=== PATIENT | female | born 1940 | race Caucasian/White ===

== ENCOUNTER 2021-01-19 12:30 | Inpatient (IN) | payer MEDICARE ==
[~2021-01-19] VITALS: Ht 162.6 cm; Wt 57.6 kg
--- NOTE | 2021-01-19 13:00 | NUR ---
CLEANERS NOTE- PT BROUGHT IN BY AMBULANCE FOR ADMISSION 5150 [address] AFTER SHE WAS FOUND SITTING IN A WCR, CONFUSED LOST AND UNABLE TO CARE FOR SELF. ON FACE TO FACE ASSESSMENT, PT FOUND TO BE ALERT ORIENTED TO PERSON ONLY. STATES 'KUNAL HORAN IS PRESIDENT' 'I OWN A BUNCH OF HOUSES [place]. THIS IS A MISTAKE' PT IS CALM FOR THE MOST PART AND DIRECTABLE. USES FWW TO AMBULATE. SKIN INTACT, PT ALLERGIES LISINPRIL. PMHX- BRONCHITIS, HTN, CVA, PNA, COPD, HEART DISEASE, AORTIC STENOSIS. VS- BP- 154/91, HR- 93, RR- 20, T- 98.3, SATS AT 98% RA. PT IS COVID NEG. URINE TOX SCREEN POS FOR OPIATES THOUGH PT TAKES OXY AND MSO4 FOR PAIN ISSUES. STATES SHE HAD PNA AND FLU VACC RECENTLY BUT CANNOT RECALL DATE. PT DENIES SI HI AH VH, CLAIMS THE ONLY THING WRONG IS SHE CANNOT FIND HER BROWN PURSE THAT SHES CERTAIN SHE BROUGHT ALONG WITH HER. PT VALUABLES INVENTORIES AND THOUGH CONSIDERABLE PURDY, CREDIT CARDS AND CELL PHONE ARE PRESENT AND SECURED, THERE IS NO BROWN PURSE. CALLED AMBULANCE DISPATCH TO LOOK INTO. DR GANT NOTIFIED OF ADMIT. ORDERS RECEIVED CARRIED OUT. PT ORIENTED TO UNIT. ASSIST AND ENCOURAGE
[2021-01-19] MEDS ORDERED: OXYC1TAB12 PO (13:20)
[2021-01-19] MEDS ORDERED: MORP15TA PO (13:20)
[2021-01-19] MEDS ORDERED: ASPI-1169 PO (13:20)
[2021-01-19] MEDS ORDERED: GABA-532 PO (13:20)
[2021-01-19] MEDS ORDERED: ATOR80TA PO (13:20)
[2021-01-19] MEDS ORDERED: FURO-144 PO (13:20)
[2021-01-19] MEDS ORDERED: AMLO5TAB4 PO (13:20)
[2021-01-19] MEDS ORDERED: METO50TA16 PO (13:20)
[2021-01-19] MEDS ORDERED: CLOP75TA15 PO (13:20)
--- NOTE | 2021-01-19 13:53 | NUR ---
RN-NOTES DR. GANT MADE AWARE OF PATIENT ADMISSION WITH STANDING ORDER. NOTED AND CARRIED OUT.
[2021-01-19] MEDS ORDERED: LORAZEPAM 0.5 MG TABLET PO PRN (14:00)
[2021-01-19] MEDS ORDERED: MAG HYDROX/AL HYDROX/SIMETH 30 ML UDC PO PRN (14:00)
[2021-01-19] MEDS ORDERED: MAGNESIUM HYDROXIDE 30 ML UDC PO PRN (14:00)
[2021-01-19] MEDS ORDERED: ACETAMINOPHEN 325 MG TABLET PO PRN (14:00)
[2021-01-19] MEDS ORDERED: BLOOD SUGAR DIAGNOSTIC 1 EACH STRIP IN ONE (14:00)
[2021-01-19] MEDS ORDERED: TEMAZEPAM 7.5 MG CAPSULE PO PRN (14:00)
[2021-01-19 16:00] VITALS: BP 150/76
[2021-01-19] MEDS: GABAPENTIN 100 MG CAPSULE PO SCH (16:49)
[2021-01-19] MEDS: METOPROLOL TARTRATE 50 MG TABLET PO SCH (16:50)
[2021-01-19] MEDS: oxyCODONE/APAP (5/325 MG) 1 UDTAB TABLET PO PRN (16:50)
[2021-01-19 20:01] VITALS: BP 122/82
[2021-01-19] MEDS: ATORVASTATIN 40 MG TABLET PO SCH (21:08)
[2021-01-19] MEDS: MORPHINE SULFATE IR 15 MG TABLET PO SCH (21:10)
[2021-01-20 08:00] VITALS: BP 156/88
[2021-01-20] MEDS: MORPHINE SULFATE IR 15 MG TABLET PO SCH ×2 (08:59→21:22)
[2021-01-20] MEDS: GABAPENTIN 100 MG CAPSULE PO SCH ×3 (08:59→16:25)
[2021-01-20] MEDS: AMLODIPINE BESYLATE 5 MG TABLET PO SCH (08:59)
[2021-01-20] MEDS: ASPIRIN 81 MG TAB.CHEW PO SCH (08:59)
[2021-01-20] MEDS: METOPROLOL TARTRATE 50 MG TABLET PO SCH ×2 (09:00→16:25)
[2021-01-20] MEDS: CLOPIDOGREL BISULFATE 75 MG TABLET PO SCH (09:01)
[2021-01-20] MEDS: FUROSEMIDE 40 MG TABLET PO SCH (09:01)
[2021-01-20 09:14] LABS: ALBUMIN 3.8 g/dL (3.4-5.0); BILIRUBIN,TOTAL 0.5 mg/dL (0.2-1.0); CALCIUM, SERUM 9.4 mg/dL (8.5-10.1); CREATININE 0.9 mg/dL (0.6-1.3); POTASSIUM 4.3 mmol/L (3.5-5.1); TOTAL PROTEIN, SERUM 8.7 g/dL (6.4-8.2)
[2021-01-20 09:33] LABS: CHOLESTEROL 185 mg/dL (<200); HDL CHOLESTEROL 59 mg/dL (40-60); LDL 107 mg/dL (0-99); TRIGLYCERIDES 66 mg/dL (30-150)
--- NOTE | 2021-01-20 15:43 | NUR ---
GPS RN NOTE PATIENTS SON CAME TO VISIT, PATIENT AND THE SON REQUESTED PATIENTS BELONGINGS, TOOK OUT FROM THE BELONGING 200 DOLLARS IN PURDY AND GREEN DEBIT/CREDIT CARD. BELONGING LIST IS UPDATED.
[2021-01-20 16:04] VITALS: BP 149/97
[2021-01-20 21:02] VITALS: BP 168/95
[2021-01-20] MEDS: ATORVASTATIN 40 MG TABLET PO SCH (21:21)
[2021-01-21] MEDS: oxyCODONE/APAP (5/325 MG) 1 UDTAB TABLET PO PRN ×2 (05:20→22:57)
[2021-01-21 08:00] VITALS: BP 140/88
[2021-01-21] MEDS: GABAPENTIN 100 MG CAPSULE PO SCH ×3 (08:57→16:53)
[2021-01-21] MEDS: RIVASTIGMINE TARTRATE 1.5 MG CAPSULE PO SCH ×2 (08:57→21:32)
[2021-01-21] MEDS: CLOPIDOGREL BISULFATE 75 MG TABLET PO SCH (08:57)
[2021-01-21] MEDS: risperiDONE 0.25 MG TABLET PO SCH ×2 (08:57→21:31)
[2021-01-21] MEDS: ASPIRIN 81 MG TAB.CHEW PO SCH (08:57)
[2021-01-21] MEDS: MORPHINE SULFATE IR 15 MG TABLET PO SCH ×2 (08:58→21:31)
[2021-01-21] MEDS: FUROSEMIDE 40 MG TABLET PO SCH (08:58)
[2021-01-21] MEDS: AMLODIPINE BESYLATE 5 MG TABLET PO SCH (08:58)
[2021-01-21] MEDS: METOPROLOL TARTRATE 50 MG TABLET PO SCH ×2 (08:58→16:54)
[2021-01-21 16:00] VITALS: BP 110/74
[2021-01-21 20:00] VITALS: BP 163/96
[2021-01-21] MEDS: ATORVASTATIN 40 MG TABLET PO SCH (21:32)
[2021-01-22 08:00] VITALS: BP 152/89
[2021-01-22] MEDS: risperiDONE 0.25 MG TABLET PO SCH ×2 (08:48→21:18)
[2021-01-22] MEDS: MORPHINE SULFATE IR 15 MG TABLET PO SCH ×2 (08:48→20:45)
[2021-01-22] MEDS: ASPIRIN 81 MG TAB.CHEW PO SCH (08:49)
[2021-01-22] MEDS: METOPROLOL TARTRATE 50 MG TABLET PO SCH ×2 (08:49→16:48)
[2021-01-22] MEDS: FUROSEMIDE 40 MG TABLET PO SCH (08:49)
[2021-01-22] MEDS: CLOPIDOGREL BISULFATE 75 MG TABLET PO SCH (08:49)
[2021-01-22] MEDS: RIVASTIGMINE TARTRATE 1.5 MG CAPSULE PO SCH (08:49)
[2021-01-22] MEDS: GABAPENTIN 100 MG CAPSULE PO SCH ×3 (08:49→16:47)
[2021-01-22] MEDS: AMLODIPINE BESYLATE 5 MG TABLET PO SCH (08:49)
--- NOTE | 2021-01-22 13:06 | NUR ---
Initial Discharge Plan: Pt is currently homeless. Per pt, she would like to be discharged to her daughters home where SW was informed she cannot go. YOU will work with the pt and the MD regarding appropriate discharge planning. SW will form a safe and proper discharge.
--- NOTE | 2021-01-22 15:25 | NUR ---
Point of Contact: SW received a call from the pts tube drawer, Marcos ([phone]), who stated that he has been involved in the pts care and is aware of the struggles between the pt and her family. Pts tube drawer stated that the pt has been homeless since she lost her house in 2007 and that she has not had a relationship with her daughter in years. Pts tube drawer stated that the pts son has been involved in her care and that he has been incarcerated a few times. SW did not provide any information on the pt case and just took down the information presented.
[2021-01-22 16:00] VITALS: BP 117/77
[2021-01-22 20:00] VITALS: BP 120/80
[2021-01-22] MEDS: ATORVASTATIN 40 MG TABLET PO SCH (21:18)
[2021-01-23 08:00] VITALS: BP 155/86
[2021-01-23 08:18] VITALS: BP 155/86
[2021-01-23] MEDS: GABAPENTIN 100 MG CAPSULE PO SCH ×2 (08:18→12:22)
[2021-01-23] MEDS: METOPROLOL TARTRATE 50 MG TABLET PO SCH (08:18)
[2021-01-23] MEDS: FUROSEMIDE 40 MG TABLET PO SCH (08:18)
[2021-01-23] MEDS: AMLODIPINE BESYLATE 5 MG TABLET PO SCH (08:18)
[2021-01-23] MEDS: ASPIRIN 81 MG TAB.CHEW PO SCH (08:18)
[2021-01-23] MEDS: risperiDONE 0.25 MG TABLET PO SCH (08:18)
[2021-01-23] MEDS: MORPHINE SULFATE IR 15 MG TABLET PO SCH (08:19)
[2021-01-23] MEDS: CLOPIDOGREL BISULFATE 75 MG TABLET PO SCH (08:20)
--- NOTE | 2021-01-23 08:50 | NUR ---
GPS BRASS INSTRUMENT REPAIR TECHNICIAN: MD VISIT DR. STAUFFER HERE AND AWARE PT IS FOR DISCHARGE THIS AFTERNOON WITH PRESCRIPTIONS PROVIDED.
--- NOTE | 2021-01-23 10:30 | NUR ---
Family Contact: YOU called the pts son, Nikolay ([phone]), and confirmed that he will arrive to sweet pickle maker the pt around 1:30pm. YOU went over the medications with the pt and discussed the need for the pt to remain on her medications. Pts son stated that he is unsure why the pt is on an antipsychotic and YOU stated that the MD felt she needed the medication due to her behaviors. Pts son stated his concern about the medications. YOU proceeded with the pts discharge.
--- NOTE | 2021-01-23 11:00 | NUR ---
gps automation tender: notes spoke to pt and informed her that her son will pick her up at 1330. pt happy to go home and started telling other residents. pt stable for discharge. denies si/hi at this time. denies auditory/visual hallucinations at this time.
--- NOTE | 2021-01-23 11:51 | NUR ---
gps modular home crew member: notes order received for discharge home per cn. order acknowledged.
--- NOTE | 2021-01-23 12:17 | NUR ---
Discharge Note: Pt will be discharged to her sons home located [address] [place], [place]; ([phone]). Pts son, Nikolay ([phone]), will nut picker the pt around 1:30pm. Upon discharge, the pt appears to be in a euthymic mood and presents with a calm affect. Pt appears to be alert and oriented x4 (time, place, self and situation). Pt denies suicidal and homicidal ideation as well as auditory and visual hallucinations. Pt appears to be well groomed and appropriately dressed. Pt will be under the care of psychiatrist, Dr. Sudhakar Loera, located at [address] [facility] [address] [address]; . Pt will continue to be under the care of lifestyle consultant, Dr. Yue Quiro[place], [place] [address] [place] [address] [address], [place] [address]; ; fax: ([phone]). Pts appointment has been scheduled for 02/07/21 at 2:45pm. The multidisciplinary exit care form was done, printed, signed, and given to the patient.
--- NOTE | 2021-01-23 13:00 | NUR ---
gps brimming machine operator: notes discharge instructions given to pt with prescriptions and verbalized understanding. pt to follow up next week with her primary care physician and psychiatrist. awaiting for son to pick her up. needs attended.
--- NOTE | 2021-01-23 13:30 | NUR ---
gps lead machinist: notes all belongings/valuables returned to pt. pt stable for discharge, pt denied si/hi and denied auditory/visual hallucinations. met son in main lobby and signed the continuing care advisement and acknowledgement responsible alliance party. pt left via uber with son and d'c papers.
== END 2021-01-23 13:30 | disposition home or self-care (01) | DRG 885 ==
LOC: GPS 12:30
PROVIDERS: ADMIT Psychiatry & Neurology Psychiatry; ATTEND Family Medicine
DX: F29 Unspecified psychosis not due to a substance or known physiological condition (principal); F32.9 Major depressive disorder, single episode, unspecified; F03.90 Unspecified dementia, unspecified severity, without behavioral disturbance, psychotic disturbance, mood disturbance, and anxiety; E78.5 Hyperlipidemia, unspecified; I10 Essential (primary) hypertension; G89.4 Chronic pain syndrome; J44.9 Chronic obstructive pulmonary disease, unspecified; Z86.73 Personal history of transient ischemic attack (TIA), and cerebral infarction without residual deficits; I25.10 Atherosclerotic heart disease of native coronary artery without angina pectoris; M06.9 Rheumatoid arthritis, unspecified; M19.90 Unspecified osteoarthritis, unspecified site; Z79.899 Other long term (current) drug therapy; G62.9 Polyneuropathy, unspecified; I35.0 Nonrheumatic aortic (valve) stenosis; F41.9 Anxiety disorder, unspecified; Z73.6 Limitation of activities due to disability; R53.1 Weakness; R27.8 Other lack of coordination; Z91.81 History of falling
CPT/HCPCS: 36415; 80053-TC; 80061-TC; 82962-TC; 87081-TC; 97116-TC; 97530-TC

== ENCOUNTER 2021-01-24 19:11 | Inpatient (IN) | payer MEDICARE ==
[~2021-01-24] VITALS: Ht 160 cm; Wt 58.1 kg
[~2021-01-24 19:11] MED LIST: AMLO5TAB4 PO; ASPI-1169 PO; ATOR80TA PO; CLOP75TA15 PO; FURO-144 PO; GABA-532 PO; METO50TA16 PO; MORP15TA PO; OXYC1TAB12 PO
[2021-01-24] MEDS ORDERED: TDAP [DIPH/PERTUSSIS/TET] 0.5 ML VIAL IM ONE ×2 (19:30→19:34)
[2021-01-24 19:45] LABS: EOSINOPHILS % (AUTO) 0.9 % (0.0-6.0); MONOCYTES # (AUTO) 0.5 /CMM (0.1-1.30); NEUTROPHILS % (AUTO) 75.2 % (43.0-81.0)
--- NOTE | 2021-01-24 19:46 | NUR ---
bibra [address], pt on 5150 hold per lapd for gd and dts, pt also noted with laceration on right arm s/p fell down middle of street.pt is aa/o x able to tell her name and place where she is, breathing even and unlabored, v/s checked and recorded, HR is 114 no fever, will cont to monitor the pt
--- NOTE | 2021-01-24 19:47 | NUR ---
seen by dr kessler with order made and carried out
[2021-01-24 19:49] LABS: BASOPHILS # (AUTO) 0.1 /CMM (0.0-0.2); HEMATOCRIT 34 % (33-45); HEMOGLOBIN 10.5 g/dL (11.5-14.8); LYMPHOCYTES # (AUTO) 1.1 /CMM (0.8-4.8); LYMPHOCYTES % (AUTO) 15.2 % (20.0-44.0); MEAN CORPUSCULAR HGB CONC 31 g/dl (31.0-36.0); MEAN CORPUSCULAR VOLUME 79 fL (82-100); MONOCYTES % (AUTO) 7.7 % (2.0-12.0); NEUTROPHILS # (AUTO) 5.3 /CMM (1.8-8.9); PLATELET COUNT (AUTO) 307 /CMM (150-450); RED BLOOD CELL COUNT(AUTO) 4.24 MIL/uL (4.0-5.2)
--- NOTE | 2021-01-24 19:51 | NUR ---
EMT on bedside doing cleaning of lacerated wounds TDAP administered as order
[2021-01-24 20:00] LABS: ACETAMINOPHEN < 10 ug/ml (10-30); ALANINE AMINOTRANSFERASE 9 U/L (12-78); ALBUMIN 3.7 g/dL (3.4-5.0); ALCOHOL, BLOOD < 3 mg/dL (0-0); ALKALINE PHOSPHATASE 110 U/L (46-116); ASPARTATE AMINOTRANSFERASE 22 U/L (15-37); BILIRUBIN,DIRECT 0.1 mg/dL (0.0-0.2); BILIRUBIN,TOTAL 0.4 mg/dL (0.2-1.0); CALCIUM, SERUM 8.6 mg/dL (8.5-10.1); CARBON DIOXIDE 21 mmol/L (21-32); CHLORIDE 102 mmol/L (98-107); CREATININE 1.2 mg/dL (0.6-1.3); GLUCOSE 117 mg/dL (74-106); POTASSIUM 4.4 mmol/L (3.5-5.1); SODIUM SERUM 137 mmol/L (136-145); TOTAL PROTEIN, SERUM 8.4 g/dL (6.4-8.2); UREA NITROGEN, BLOOD 61 mg/dL (7-18)
--- NOTE | 2021-01-24 20:00 | NUR ---
DR. CALLAHAN SPEAKING WITH PT'S SON RAHUL ([phone]) REGARDING PLAN OF CARE
--- NOTE | 2021-01-24 20:07 | NUR ---
COVID SWAB COLLECTED, CALLED LAB FOR OFFICE MANAGER RECEPTIONIST
--- NOTE | 2021-01-24 20:09 | NUR ---
PT UNABLE TO PROVIDE URINE SAMPLE AT THIS TIME, AWARE
--- NOTE | 2021-01-24 20:19 | NUR ---
PT C/O PAIN R UPPER EXT. AWARE
[2021-01-24] MEDS ORDERED: ACETAMINOPHEN 325 MG TABLET ONE (20:22)
[2021-01-24] MEDS: ACETAMINOPHEN 325 MG TABLET PO ONE ×2 (20:25→21:20)
--- NOTE | 2021-01-24 20:43 | NUR ---
PT STILL UNABLE TO PROVIDE URINE SAMPLE AT THIS TIME. MD MOSELEY
--- NOTE | 2021-01-24 22:00 | NUR ---
SAVANA NAPIER AT BEDSIDE FOR EVALUATION
--- NOTE | 2021-01-24 22:30 | NUR ---
pt will be admitted to GPS room #219
--- NOTE | 2021-01-24 22:45 | NUR ---
REPORT GIVEN TO MS LUNDBERG RN OF GPS FOR ASHLEY
--- NOTE | 2021-01-24 23:28 | NUR ---
PT TRANSFERRED TO GPS 219
[2021-01-25] MEDS ORDERED: MAGNESIUM HYDROXIDE 30 ML UDC PO PRN
[2021-01-25] MEDS ORDERED: BLOOD SUGAR DIAGNOSTIC 1 EACH STRIP IN ONE
[2021-01-25] MEDS ORDERED: MAG HYDROX/AL HYDROX/SIMETH 30 ML UDC PO PRN
[2021-01-25] MEDS ORDERED: TEMAZEPAM 7.5 MG CAPSULE PO PRN
[2021-01-25] MEDS ORDERED: LORAZEPAM 0.5 MG TABLET PO PRN
[2021-01-25] MEDS: ACETAMINOPHEN 325 MG TABLET PO PRN ×3 (00:40→22:23)
--- NOTE | 2021-01-25 00:45 | NUR ---
GPS COIN BOX INSPECTOR NOTES: RECEIVED PATIENT FROM ER VIA [facility]. PATIENT ARRIVED THIS UNIT AT 2325 ON A 5150 HOLD FOR DTS/GRAVELY DISABLED. HOLD WAS PLACED ON 01/24/21 @ 1030. PER HOLD NUMEROUS CALLS WERE MADE TO INSTRUCTOR WEAVING ABOUT THIS PATIENT FOUND WANDERING IN THE STREET BLEEDING PROFUSELY, PATIENT WAS DISORIENTED, CONFUSED, SUFFERING FROM OPEN WOUNDS TO HER RIGHT ARM AND BRUISES TO HER UPPER AND LOWER EXTREMITIES. PATIENT WAS REFUSING TO GET TREATED AT THE ER, AND DOES NOT WANT TO BE SEEN BY DOCTORS. PATIENT WAS UNABLE TO CARE FOR HERSELF AND UNAWARE SHE IS SUFFERING FROM OPEN WOUNDS. UPON FACE TO FACE EVALUATION PATIENT IS A/O X1-2, VERY TALKATIVE, HYPERVERBAL, DISORGANIZED, SUSPICIOUS, ANXIOUS, RESTLESS, THINKS SHE WORKS FOR PEOPLE, TELLING HER ROOMMATE "WE NEED TO GET OUT OF HERE SO WE CAN VISIT EACH OTHER". ASKING HER ROOMMATE TO "KEEP OUR SECRET, YOU DON'T HAVE TO TELL THEM OUR BUSINESS". PATIENT HAS BRUISES AND LACERATION ON HER RIGHT ARM, BRUISES ON HER LEFT ARM, AND MULTIPLE BRUISES ON BILATERAL LOWER EXTREMITIES. PATIENT ASKED FOR PAIN MEDS FOR KNEE PAIN. TYLENOL 650MG GIVEN PO. PATIENT HAS NO S/S OF DISTRESS AT THIS TIME. PATIENT'S BREATHING IS EVEN AND UNLABORED WITH EQUAL RISE AND FALL OF THE CHEST ON ROOM AIR. PATIENT DENIES SI AT THIS TIME. PATIENT HAS BEEN ADVISED OF HER HOLD AND PT RIGHTS BOOKLET GIVEN. PATIENT BELONGINGS WERE INVENTORIED AND CHECKED FOR CONTRABAND. PATIENT IMMUNIZATIONS QUESTIONNAIRE, AND OTHER NECESSARY ADMISSION PAPERWORK COMPLETED, PATIENT UNABLE TO SIGN PAPER WORK. PATIENT SKIN ASSESSMENT COMPLETED, PICTURES TAKEN AND PLACED IN PATIENT CHART. PATIENT [id number]/DL. PATIENT ORIENTED TO ROOM, FLOOR/UNIT AND STAFF. PATIENT IS UNDER THE PSYCHIATRIC CARE OF DR GANT AND MEDICAL CARE OF SRINATH. BOTH HAVE BEEN INFORMED OF PATIENT ADMISSION AND ORDERS CARRIED OUT. PATIENT IS CURRENTLY SLEEPING COMFORTABLE IN BED. SAFETY PRECAUTION INITIATED, BED IN LOWEST POSITION AND LOCKED WITH SIDE RAILS UP X2. CALL LIGHT WITHIN REACH OF THE PATIENT. WILL CONTINUE TO MONITOR Q15 FOR SAFETY, MOOD AND BEHAVIOR.
[2021-01-25 01:00] VITALS: BP 124/92
--- NOTE | 2021-01-25 06:13 | NUR ---
GPS-RN NOTE: PATIENT C/O BILATERAL LOWER LEG PAIN. PRN ACETAMINOPHEN 650MG PO ORDERED. WILL CONTINUE TO REASSESS.
--- NOTE | 2021-01-25 06:59 | NUR ---
GPS RN CLOSING NOTES: PATIENT IS CURRENTLY SLEEPING. PATIENT SLEPT 5HRS THIS SHIFT. NO S/S OF DISTRESS. RESPIRATION EVEN AND UNLABORED WITH EQUAL RISE AND FALL OF THE CHEST ON ROOM AIR. ALL PATIENT CARE NEEDS HAVE BEEN MET ANTICIPATED. BED IN LOWEST POSITION AND LOCKED WITH SIDE RAILS UP X2. WILL CONTINUE TO MONITOR FOR SAFETY, MOOD AND BEHAVIOR AND ENDORSE TO AM SHIFT.
[2021-01-25 08:00] VITALS: BP 157/98
[2021-01-25] MEDS: ASPIRIN 81 MG TAB.CHEW PO SCH (08:37)
[2021-01-25] MEDS: GABAPENTIN 100 MG CAPSULE PO SCH ×4 (08:37→16:07)
[2021-01-25] MEDS: AMLODIPINE BESYLATE 5 MG TABLET PO SCH (08:38)
[2021-01-25] MEDS: MORPHINE SULFATE IR 15 MG TABLET PO SCH ×2 (08:39→16:07)
[2021-01-25] MEDS: FUROSEMIDE 40 MG TABLET PO SCH ×2 (08:39→08:43)
[2021-01-25] MEDS: CLOPIDOGREL BISULFATE 75 MG TABLET PO SCH (08:39)
[2021-01-25] MEDS: METOPROLOL TARTRATE 50 MG TABLET PO SCH ×2 (08:40→16:08)
--- NOTE | 2021-01-25 11:13 | NUR ---
Family Contact: Pts son, Nikolay ([phone]), called the SW and stated that he was upset that the pt was placed on a hold once again after recently being discharged from the hospital. Pts son inquired about the criteria for the hold and who placed the pt on the hold as well. SW explained the events that led to the hold and inquired if the pt will be discharged back to the home with him. Pts son expressed his anger and stated that yes he will take the pt back to his home.
[2021-01-25 16:00] VITALS: BP 147/76
[2021-01-25] MEDS ORDERED: RIVASTIGMINE TARTRATE 1.5 MG CAPSULE PO SCH (20:00)
[2021-01-25 20:27] VITALS: BP 137/72
[2021-01-25] MEDS: RIVASTIGMINE TARTRATE 1.5 MG CAPSULE PO SCH (21:40)
[2021-01-25] MEDS: ATORVASTATIN 40 MG TABLET PO SCH (21:40)
[2021-01-25] MEDS: risperiDONE 0.25 MG TABLET PO SCH (21:40)
--- NOTE | 2021-01-25 22:27 | NUR ---
GPS RN NOTES: PATIENT REQUESTED FOR PAIN MEDS FOR GENERALIZED BODY PAIN. TYLENOL 650MG GIVEN PO PRN ORDERED AT 2223. WILL CONTINUE TO MONITOR.
--- NOTE | 2021-01-25 22:27 | NUR ---
GPS RN NOTES: PATIENT REQUESTED FOR SLEEP MEDICATION. RESTORIL 7.5MG/1CAP GIVEN PO PRN ORDERED AT 2225. WILL CONTINUE TO MONITOR.
--- NOTE | 2021-01-26 07:00 | NUR ---
GPS RN CLOSING NOTES: PATIENT IS LAYING ON BED SLEEPING. PATIENT SLEPT 6HRS THIS SHIFT. PATIENT WAS MED COMPLIANT THIS SHIFT. NO S/S OF DISTRESS. RESPIRATION EVEN AND UNLABORED WITH EQUAL RISE AND FALL OF THE CHEST ON ROOM AIR. ALL PATIENT CARE NEEDS HAVE BEEN MET ANTICIPATED. BED IN LOWEST POSITION AND LOCKED WITH SIDE RAILS UP X2. WILL CONTINUE TO MONITOR FOR SAFETY, MOOD AND BEHAVIOR AND ENDORSE TO AM SHIFT.
[2021-01-26 08:00] VITALS: BP 158/90
[2021-01-26] MEDS: FUROSEMIDE 40 MG TABLET PO SCH (09:00)
[2021-01-26] MEDS: METOPROLOL TARTRATE 50 MG TABLET PO SCH ×2 (09:00→17:29)
[2021-01-26] MEDS: risperiDONE 0.25 MG TABLET PO SCH ×2 (09:00→21:42)
[2021-01-26] MEDS: CLOPIDOGREL BISULFATE 75 MG TABLET PO SCH (09:00)
[2021-01-26] MEDS: ASPIRIN 81 MG TAB.CHEW PO SCH (09:00)
[2021-01-26] MEDS: GABAPENTIN 100 MG CAPSULE PO SCH ×3 (09:00→17:27)
[2021-01-26] MEDS: MORPHINE SULFATE IR 15 MG TABLET PO SCH ×2 (09:00→17:27)
[2021-01-26] MEDS: AMLODIPINE BESYLATE 5 MG TABLET PO SCH (09:00)
[2021-01-26] MEDS: RIVASTIGMINE TARTRATE 1.5 MG CAPSULE PO SCH ×2 (09:00→21:42)
--- NOTE | 2021-01-26 09:23 | NUR ---
MS/RN NOTE ATTEMPTED TO GIVE PATIENT MEDICATION, PATIENT REFUSED ALL MEDICATIONS.
--- NOTE | 2021-01-26 10:53 | NUR ---
WOUND CARE CONSULT: PT PRESENTS WITH RT UPPER ARM SKIN TEAR, FRAGILE SKIN AND AREAS OF DISCOLORATION, PRESENT ON ADMISSION. RECOMMENDATIONS MADE FOR SKIN PROTECTION AND WOUND CARE. DISCUSSED WITH NURSING STAFF. IN AGREEMENT WITH PLAN OF CARE. CURRENT GINGER SCORE IS 17. Addendum: 01/26/21 at 1055 by WENDIE DEAN WNDNU Amended: Links added.
[2021-01-26] MEDS: ACETAMINOPHEN 325 MG TABLET PO PRN ×2 (11:47→23:20)
--- NOTE | 2021-01-26 11:49 | NUR ---
MS/RN NOTE PATIENT COMPLAINED OF HAVING PAIN IN KNEES BILATERALLY. OFFERED PATIENT TYLENOL PRN PATIENT ACCEPTED. MEDICATION WAS GIVEN.
--- NOTE | 2021-01-26 12:10 | NUR ---
Polysomnography Tech Contact: SW received a call from pts model and pattern supervisor, Marcos Kelly ([phone]), who stated that there is a restraining order against the pts son that the pt and her friend, Marcos eDangelo, has filed together. SW stated that she was going to follow up and get a record copy of it.
--- NOTE | 2021-01-26 12:18 | NUR ---
Mental Evaluation Unit Contact: YOU contacted Officer Ritchie ([phone]) who provided the SW with the website ([email or web address]) and [facility] number ([id number]) to locate the restraining order. YOU informed him that she is printing out a copy and placing it in the pts chart so that no more information will be provided to the pts son, Nikolay Espinal.
--- NOTE | 2021-01-26 12:58 | NUR ---
Initial Discharge Note: Pt states that she wants to return to living with her son but there is a restraining order on file that she has against him. SW will work with the pt and the MD in appropriate discharge planning. SW will form a safe and proper discharge.
--- NOTE | 2021-01-26 12:58 | NUR ---
Psychosocial Note: I, Irina Cohn MSW, attest to the patients previous psychosocial information dated on 01/22/21. Update On Events leading to Admission and Discharge Plan: Pt has returned to the geriatric psychiatric unit within a few days of her previous discharge date (01/23/21) to her sons home. Pt is an 80-year-old female who was readmitted to [facility] on 01/24/21 on a 5150 hold for danger to self and grave disability. Per psychiatric hold, the police department received a radio call of an elderly woman walking the streets bleeding profusely and walking disoriented. Upon face to face contact, the pt appeared to be disoriented and unable to care for herself. Pt does not appear to be aware of her wounds. 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 Pt states that she does not need treatment for her wounds as she is fine and stated that she does not need doctors even if she has broken bones. Upon social welfare research worker evaluation, pt appears to be oriented x3 (time, place, and self). Pt was confused about the nature of her admission and stated, "I am not supposed to be in the psychiatric [facility]. I came into the emergency room to get help for my medical problems. I am not crazy and now you will get a huge lawsuit from me for keeping me here against my will." Pt appears to be confused and disorganized. Pt appears to be in a manic mood and presents with a distressed affect. Pt appears to be resistant to treatment and has a poor sense of reality. Pt believes that her children are involved in her life when the reality is that they have been estranged from her for years and her son even has a restraining order against her. Pts insight and judgment appear to be impaired and the pts impulse control is poor. Pt states that she wants to return to living with her son but there is a restraining order on file that she has against him. YOU will work with the pt and the MD in appropriate discharge planning. SW will form a safe and proper discharge.
[2021-01-26 16:00] VITALS: BP 162/87
[2021-01-26 20:11] VITALS: BP 139/93
[2021-01-26] MEDS: ATORVASTATIN 40 MG TABLET PO SCH (21:42)
--- NOTE | 2021-01-26 23:26 | NUR ---
GPS RN NOTES: PATIENT REQUESTED FOR PAIN MEDS FOR BILATERAL UPPER AND LOWER EXTREMITY PAIN. TYLENOL 650MG GIVEN PO PRN ORDERED AT 2320. WILL CONTINUE TO MONITOR.
--- NOTE | 2021-01-27 06:47 | NUR ---
GPS RN CLOSING NOTES: PATIENT IS CURRENTLY SLEEPING. PATIENT SLEPT 7HRS THIS SHIFT. PATIENT WAS MED COMPLIANT THIS SHIFT. NO S/S OF DISTRESS. RESPIRATION EVEN AND UNLABORED WITH EQUAL RISE AND FALL OF THE CHEST, ON ROOM AIR. ALL PATIENT CARE NEEDS HAVE BEEN MET ANTICIPATED. BED IN LOWEST POSITION AND LOCKED WITH SIDE RAILS UP X2. WILL CONTINUE TO MONITOR FOR SAFETY, MOOD AND BEHAVIOR AND ENDORSE TO AM SHIFT.
--- NOTE | 2021-01-27 07:07 | NUR ---
RN OPENING NOTES RECEIVED PATIENT AWAKE IN BED. AOX2-3. BREATHING AND RESPIRATION EVEN AND UNLABORED WITH EQUAL RISE AND FALL OF THE CHEST, STABLE ON ROOM AIR. NO SOB NOTED, NO S/S OF ANY ACUTE DISTRESS. PT DENIES SI/HI. SAFETY PRECAUTIONS IN PLACE AND MAINTAINED AT ALL TIMES. BED IN LOWEST LOCKED POSITION, SIDE RAILS UP X2, CALL LIGHT AND TABLE WITHIN REACH. WILL. CONTINUE TO MONITOR Q15 MIN FOR SAFETY, MOOD AND BEHAVIOR.
[2021-01-27 08:00] VITALS: BP 156/92
[2021-01-27] MEDS: ASPIRIN 81 MG TAB.CHEW PO SCH (08:41)
[2021-01-27] MEDS: risperiDONE 0.25 MG TABLET PO SCH ×2 (08:42→21:41)
[2021-01-27] MEDS: CLOPIDOGREL BISULFATE 75 MG TABLET PO SCH (08:42)
[2021-01-27] MEDS: RIVASTIGMINE TARTRATE 1.5 MG CAPSULE PO SCH ×2 (08:43→21:40)
[2021-01-27] MEDS: METOPROLOL TARTRATE 50 MG TABLET PO SCH ×2 (08:43→16:55)
[2021-01-27] MEDS: FUROSEMIDE 40 MG TABLET PO SCH (08:44)
[2021-01-27] MEDS: AMLODIPINE BESYLATE 5 MG TABLET PO SCH (08:44)
[2021-01-27] MEDS: GABAPENTIN 100 MG CAPSULE PO SCH ×3 (08:45→16:53)
[2021-01-27] MEDS: MORPHINE SULFATE IR 15 MG TABLET PO SCH ×2 (08:45→16:54)
[2021-01-27 16:00] VITALS: BP 142/82
--- NOTE | 2021-01-27 18:35 | NUR ---
RN CLOSING NOTES PT IN DINNING ROOM WATCHING TV AT THIS TIME. PT REMAINED STABLE THROUGHOUT SHIFT. ALL CARE, NEEDS, MEDICATION AND TREATMENT ADMINISTERED ANTICIPATED PER ORDER. PAIN CONTROL ADMINISTERED PER SCHEDULE. PT KEPT CLEAN AND DRY. SAFETY PRECAUTIONS IN PLACE AND MAINTAINED AT ALL TIMES. BED IN LOWEST LOCKED POSITION, HOB ELEVATED, SIDE RAILS UPX2, CALL LIGHT AND TABLE WITHIN REACH. WILL ENDORSE TO HELICOPTER UTILITY AIRCREWMAN NURSE FOR ASHLEY
[2021-01-27 20:37] VITALS: BP 150/78
[2021-01-27] MEDS: ATORVASTATIN 40 MG TABLET PO SCH (21:44)
--- NOTE | 2021-01-27 22:31 | NUR ---
GPS RN NOTE, RECEIVED PATIENT AWAKE AND IN BED, NO S/S OR COMPLAINTS OF PAIN AT THIS TIME. PATIENT IS DISPLAYING NO S/S OF APPARENT DISTRESS AT THIS TIME. PATIENT BREATHING IS UNLABORED WITH EQUAL RISE AND FALL OF THE CHEST. PATIENT IS ALERT AND ORIENTED X 2 ON ROOM AIR WITH A SPO2 95%. PATIENT IS COMPLIANT WITH MEDICATIONS AT TIMES, PARANOID, ANXIOUS AT TIMES, ARGUMENTATIVE, NEEDY, NEEDS REDIRECTION, AND COOPERATIVE. PATIENT DENIES SUICIDAL AND HOMICIDAL IDEATIONS AT THIS TIME. PATIENT ASSISTED WITH TURNING AND REPOSITIONING Q2HR AND PRN FOR COMFORT AND CIRCULATION. PATIENT HAS NO NEEDS AT THIS TIME. PATIENT EDUCATED ON THE USE OF THE CALL BRUCE. PATIENT BED SIDE RAILS UP X 2 FOR SAFETY. PATIENT BED IS LOCKED, LOW, WITH BED ALARM ON. WILL CONTINUE TO MONITOR THIS PATIENT Q15 MINUTES WITH THE HELP OF STAFF TO MAINTAIN SAFETY.
[2021-01-27] MEDS: ACETAMINOPHEN 325 MG TABLET PO PRN (22:40)
--- NOTE | 2021-01-27 22:40 | NUR ---
RN NOTE: PAIN PATIENT C/O RIGHT & LEFT ARM PAIN 3 & REQUESTED TO TAKE TYLENOL. PRN TYLENOL 650 MG PO ADMINISTERED. WILL CONTINUE TO MONITOR.
[2021-01-28 08:00] VITALS: BP 142/74
[2021-01-28] MEDS: RIVASTIGMINE TARTRATE 1.5 MG CAPSULE PO SCH ×2 (09:00→21:10)
[2021-01-28] MEDS: ASPIRIN 81 MG TAB.CHEW PO SCH (09:23)
[2021-01-28] MEDS: risperiDONE 0.25 MG TABLET PO SCH ×2 (09:24→21:10)
[2021-01-28] MEDS: GABAPENTIN 100 MG CAPSULE PO SCH ×3 (09:24→16:27)
[2021-01-28] MEDS: MORPHINE SULFATE IR 15 MG TABLET PO SCH ×2 (09:24→16:28)
[2021-01-28] MEDS: METOPROLOL TARTRATE 50 MG TABLET PO SCH ×2 (09:25→16:27)
[2021-01-28] MEDS: AMLODIPINE BESYLATE 5 MG TABLET PO SCH (09:25)
[2021-01-28] MEDS: CLOPIDOGREL BISULFATE 75 MG TABLET PO SCH (09:25)
[2021-01-28] MEDS: FUROSEMIDE 40 MG TABLET PO SCH (09:25)
[2021-01-28] MEDS: ENSURE ENLIVE 237 ML LIQUID (VANILLA) PO SCH ×2 (13:30→16:25)
[2021-01-28 16:03] VITALS: BP 132/82
[2021-01-28 20:07] VITALS: BP 128/82
[2021-01-28 21:09] VITALS: BP 128/82
[2021-01-28] MEDS: ATORVASTATIN 40 MG TABLET PO SCH (21:10)
--- NOTE | 2021-01-29 00:45 | NUR ---
RN NOTE: COURT RESTRAINING ORDERS PATIENT HAS COURT RESTRAINING ORDERED AGAINST ELLEN ENAMORADO, PER ORDER RAHUL ENAMORADO MUST HAVE NO PERSONAL, ELECTRONIC, TELEPHONIC OR WRITTEN CONTACT WITH THE PATIENT. RAHUL CAN NOT CONTACT THE PATIENT THROUGH A THIRD GREEN PARTY, EXCEPT AN ADULT PAROLE OFFICER OF RECORD & RAHUL CAN NOT VISIT THE PATIENT WELL. COPY OF RESTRAINING ORDER HAS BEEN PLACED IN PATIENT'S CHART FOR FURTHER INFORMATION.
[2021-01-29 08:00] VITALS: BP 161/84
[2021-01-29] MEDS: risperiDONE 0.25 MG TABLET PO SCH ×2 (08:28→21:26)
[2021-01-29] MEDS: RIVASTIGMINE TARTRATE 1.5 MG CAPSULE PO SCH ×2 (08:28→21:26)
[2021-01-29] MEDS: FUROSEMIDE 40 MG TABLET PO SCH (08:28)
[2021-01-29] MEDS: CLOPIDOGREL BISULFATE 75 MG TABLET PO SCH (08:28)
[2021-01-29] MEDS: ENSURE ENLIVE 237 ML LIQUID (VANILLA) PO SCH ×2 (08:28→16:06)
[2021-01-29] MEDS: ASPIRIN 81 MG TAB.CHEW PO SCH (08:28)
[2021-01-29] MEDS: METOPROLOL TARTRATE 50 MG TABLET PO SCH ×2 (08:29→16:07)
[2021-01-29] MEDS: GABAPENTIN 100 MG CAPSULE PO SCH ×3 (08:29→16:07)
[2021-01-29] MEDS: AMLODIPINE BESYLATE 5 MG TABLET PO SCH (08:29)
[2021-01-29] MEDS: MORPHINE SULFATE IR 15 MG TABLET PO SCH ×2 (08:30→16:08)
[2021-01-29 19:49] VITALS: BP 122/91
[2021-01-29 20:00] VITALS: BP 122/91
[2021-01-29] MEDS: ATORVASTATIN 40 MG TABLET PO SCH (21:26)
--- NOTE | 2021-01-29 23:58 | NUR ---
RN NOTE PATIENT SEEN BY DR. ALFREDA IYER.
--- NOTE | 2021-01-30 00:15 | NUR ---
RN NOTE: DR. GANT VISITED THE PATIENT & DISCUSSED WITH THE PATIENT THAT PATIENT'S SON RAHUL ENAMORADO HAS BEEN THREATENING DR. GANT ON HIS PERSONAL PHONE & HIS FAMILY FOR HOLDING HER AT GPS UNIT A PATIENT. PATIENT AGREED THAT DR. GANT IS NOT THE ONE WHO BROUGHT HER TO GPS UNIT, SHE WAS WANDERING ON THE STREET, BLEEDING PROFUSELY, UNABLE TO CARE FOR HERSELF & [employer] BROUGHT THE PATIENT TO THE HOSPITAL. PATIENT TOLD DR. GANT THAT SHE WANTS TO BE DISCHARGED & WILL GO BACK TO HER DAUGHTER ONCE DISCHARGED. PATIENT SEEMS WORRIED ABOUT HER SON BUT AGREES THAT HE SHOULD NOT BE THREATENING ANYONE LIKE THIS. PATIENT ALSO STATED," I WILL TALK TO HIM & HE WILL APOLOGIZE TO YOU.' PATIENT WILL BE DISCHARGING TOMORROW, FOR SAFE DISCHARGE PLANNING, WILL INFORM AM RN TO FOLLOW UP WITH PASSENGER CAR CONDUCTOR IN AM TO CALL PATIENT'S DAUGHTER & INFORM THE DAUGHTER ABOUT PATIENT'S REQUEST FOR DISCHARGE & WANTS TO GO BACK TO HER DAUGHTER. PER CHARGE NURSE, DR. GANT VERBALIZED THAT ONCE PATIENT IS DISCHARGED SAFELY, PATIENT WILL NOT BE ABLE TO COME BACK TO GPS UNIT SINCE THE SON HAS BEEN THREATENING DR. GANT.
[2021-01-30] MEDS: ACETAMINOPHEN 325 MG TABLET PO PRN (01:33)
--- NOTE | 2021-01-30 01:35 | NUR ---
RN note: Patient c/o generalize pain ,requested and given Tylenol 650 mg PO.
--- NOTE | 2021-01-30 01:37 | NUR ---
Please obtain the previous 72 hour hold and 14 day hold of the patient.Request this to medical record and fax to this number [phone] under the attention of DR Longoria.
--- NOTE | 2021-01-30 02:37 | NUR ---
RN NOTE PATIENT IS ASLEEP COMFORTABLY AT THIS TIME. WILL CONTINUE TO MONITOR.
--- NOTE | 2021-01-30 07:35 | NUR ---
RN NOTE: LEFT A MESSAGE FOR YOU BAUTISTA CALLED & LEFT A VOICEMAIL FOR METAL FURNITURE ASSEMBLY SUPERVISOR LILY REGARDING PATIENT REQUESTING TO BE DISCHARGED & TO CALL PATIENT'S DAUGHTER & FOLLOW UP ABOUT PATIENT'S DISCHARGE SINCE PATIENT WANTS TO GO BACK TO HER DAUGHTER. ENDORSED TO AM RN WELL.
--- NOTE | 2021-01-30 07:43 | NUR ---
RN NOTE: CALLED MEDICAL RECORDS CALLED MEDICAL RECORDS, SPOKE TO MARVIN & REQUESTED COPY OF PATIENT'S PREVIOUS ADMISSION'S 72 HOUR HOLD & 14 DAYS HOLD TO BE FAXED TO DR. GANT AT [phone] GANT'S REQUEST. AMY WILL ALSO CALL DR. GANT TO CONFIRM HIS FAX NUMBER BEFORE FAXING COPY OF HOLD DUE TO HIPPA PURPOSES.
[2021-01-30 08:00] VITALS: BP 140/83
[2021-01-30] MEDS: ENSURE ENLIVE 237 ML LIQUID (VANILLA) PO SCH (09:01)
[2021-01-30] MEDS: ASPIRIN 81 MG TAB.CHEW PO SCH (09:13)
[2021-01-30] MEDS: FUROSEMIDE 40 MG TABLET PO SCH (09:14)
[2021-01-30] MEDS: MORPHINE SULFATE IR 15 MG TABLET PO SCH (09:14)
[2021-01-30] MEDS: CLOPIDOGREL BISULFATE 75 MG TABLET PO SCH (09:14)
[2021-01-30] MEDS: AMLODIPINE BESYLATE 5 MG TABLET PO SCH (09:14)
[2021-01-30] MEDS: METOPROLOL TARTRATE 50 MG TABLET PO SCH (09:15)
[2021-01-30] MEDS: RIVASTIGMINE TARTRATE 1.5 MG CAPSULE PO SCH (09:15)
[2021-01-30] MEDS: GABAPENTIN 100 MG CAPSULE PO SCH ×2 (09:15→12:07)
[2021-01-30] MEDS: risperiDONE 0.25 MG TABLET PO SCH (09:15)
--- NOTE | 2021-01-30 09:36 | NUR ---
SNF Referral: YOU faxed clinicals to [facility] (Attn: Jemma), .
--- NOTE | 2021-01-30 11:30 | NUR ---
SNF Referral: YOU faxed a referral to [facility] with attn to Marcos to the fax number: [phone].
--- NOTE | 2021-01-30 11:45 | NUR ---
SNF Contact: Jerson ([phone]) from [facility] contacted the SW and stated that the pt was accepted to their facility.
--- NOTE | 2021-01-30 12:00 | NUR ---
Pickler Helper Contact: SW called the pts food and beverage lead, Marcos Kelly ([phone]), and informed him that the pt is going to be discharged to [facility]. Pts food and beverage lead was content about the discharge plan.
--- NOTE | 2021-01-30 12:32 | NUR ---
Discharge Note: Pt will be discharged to [facility]F located at [address] [place] [id number]; ([phone]). Pt will be transported via [facility] at 3PM. SW called the pts sewing machine maintenance mechanic, Marcos Kelly ([phone]), and informed him about the pts discharge. Upon discharge, the pt appears to be in a dysphoric mood and presented with a congruent affect. Pt appears to be alert and oriented x3 (time, place, self). Pt denies both suicidal and homicidal ideation as well as auditory and visual hallucinations. Pt appears to be ambulatory with an unsteady gait. Pt appears to be well groomed and appropriately dressed. Pt will continue to be under the care of psychiatrist, Dr. Ye, located at [address] [facility] [address] [address]; . Pt will be under the care of hospitalist nocturnist physician, Dr. Barajas, located at [address] [facility] [address], [place] [address]; . The choice of vendor form and multidisciplinary exit care form were done, printed, signed, and given to the patient.
[2021-01-30 16:00] VITALS: BP 156/80
--- NOTE | 2021-01-30 16:40 | NUR ---
CHARACTER IMPERSONATOR NOTE: 80 YEAR OLD FEMALE DISCHARGED TO [facility] IN STABLE CONDITION. COMPLIANT WITH MEDICATIONS, COOPERATIVE WITH TREATMENT PLANS, PATIENT DENIES SI/HI AND INSTRUCTED TO GO TO THE CLOSEST ER IF DEVELOPING SI/HI. BEHAVIOR IMPROVED PSYCHIATRIC TREATMENT PLANS MET, MEDICAL TREATMENT PLANS DEFERRED FOR CONTINUAL MONITORING. EDUCATED PT ABOUT AFTER CARE PLANS AND COPY PROVIDED. RETURNED PERSONAL BELONGINGS TO PATIENT. MEDICATION RECONCILED WITH DR. SAUL AND DR. GANT. REPORT GIVEN TO EVELYN RN. PATIENT SIGNED DISCHARGE PAPERWORK. WOUND PICTURES TAKEN AND DOCUMENTED IN CHART. PATIENT LEFT THE UNIT AT 1640 VIA GURNEY WITH EMS PRESENT. PT ID BAND REMOVED
== END 2021-01-30 16:40 | DRG 885 ==
LOC: ER 19:15 → GPS 22:40
PROVIDERS: ADMIT Psychiatry & Neurology Psychiatry; ATTEND Registered Nurse
DX: F29 Unspecified psychosis not due to a substance or known physiological condition (principal); I11.0 Hypertensive heart disease with heart failure; E78.5 Hyperlipidemia, unspecified; I50.9 Heart failure, unspecified; R62.7 Adult failure to thrive; Z86.73 Personal history of transient ischemic attack (TIA), and cerebral infarction without residual deficits; M06.9 Rheumatoid arthritis, unspecified; I35.0 Nonrheumatic aortic (valve) stenosis; Z73.6 Limitation of activities due to disability; Z20.822 Contact with and (suspected) exposure to COVID-19; Z68.22 Body mass index [BMI] 22.0-22.9, adult; S40.811A Abrasion of right upper arm, initial encounter; W19.XXXA Unspecified fall, initial encounter; Y93.9 Activity, unspecified; Y92.89 Other specified places as the place of occurrence of the external cause
CPT/HCPCS: 36415; 73080-TC; 80048-TC; 80061-TC; 80076-TC; 82565-TC; 82962-TC; 84443-TC; 85025-TC; 87081-TC; 90715; 97112-TC; 97116-TC; 97530-TC; A6403; C9803; G0480

== ENCOUNTER 2021-03-13 07:48 | Inpatient (IN) | payer MEDICARE ==
[~2021-03-13] VITALS: Ht 160 cm; Wt 59.0 kg
--- NOTE | 2021-03-13 08:00 | NUR ---
BIB RA 878 FROM A BUS STOP, C/O WEAKNESS AND BILATERAL LEG PAIN. PATIENT A/OX4, BREATHING EVEN AND UNLABORED, NO SOB NOTED. PATIENT SOAKING IN URINE. CHANGED INTO A GOWN, THREW OUT SOILED CLOTHES. SKIN CARE PROVIDED.
--- NOTE | 2021-03-13 08:05 | NUR ---
BELONGINGS AT BEDSIDE.
[2021-03-13 08:42] LABS: BASOPHILS % (AUTO) 0.6 % (0.0-2.0); EOSINOPHILS % (AUTO) 0.7 % (0.0-6.0); HEMATOCRIT 29 % (33-45); HEMOGLOBIN 9.2 g/dL (11.5-14.8); LYMPHOCYTES # (AUTO) 0.8 /CMM (0.8-4.8); LYMPHOCYTES % (AUTO) 9.3 % (20.0-44.0); MEAN CORPUSCULAR HGB CONC 31 g/dl (31.0-36.0); MEAN CORPUSCULAR VOLUME 82 fL (82-100); MONOCYTES # (AUTO) 0.5 /CMM (0.1-1.30); MONOCYTES % (AUTO) 5.8 % (2.0-12.0); NEUTROPHILS # (AUTO) 7.1 /CMM (1.8-8.9); NEUTROPHILS % (AUTO) 83.6 % (43.0-81.0); PLATELET COUNT (AUTO) 273 /CMM (150-450); RED BLOOD CELL COUNT(AUTO) 3.59 MIL/uL (4.0-5.2); WHITE BLOOD COUNT (AUTO) 8.4 K/uL (4.3-11.0)
[2021-03-13 08:49] LABS: CALCIUM, SERUM 8.9 mg/dL (8.5-10.1); CARBON DIOXIDE 23 mmol/L (21-32); CHLORIDE 103 mmol/L (98-107); CREATININE 0.7 mg/dL (0.6-1.3); GLUCOSE 108 mg/dL (74-106); POTASSIUM 4.3 mmol/L (3.5-5.1); SODIUM SERUM 138 mmol/L (136-145); UREA NITROGEN, BLOOD 19 mg/dL (7-18)
--- NOTE | 2021-03-13 08:50 | NUR ---
PATIENT PLACED ON A BEDPAN FOR A URINE SAMPLE.
--- NOTE | 2021-03-13 08:53 | NUR ---
CALLED DESK REPORTER FOR HOMELESS CONSULT.
[2021-03-13 09:01] LABS: ALANINE AMINOTRANSFERASE 12 U/L (12-78); ALBUMIN 2.9 g/dL (3.4-5.0); ALKALINE PHOSPHATASE 102 U/L (46-116); ASPARTATE AMINOTRANSFERASE 30 U/L (15-37); BILIRUBIN,DIRECT 0.1 mg/dL (0.0-0.2); BILIRUBIN,TOTAL 0.6 mg/dL (0.2-1.0); LIPASE 79 U/L (73-393); TOTAL PROTEIN, SERUM 7.4 g/dL (6.4-8.2)
[2021-03-13 09:02] LABS: ALCOHOL, BLOOD < 3 mg/dL (0-0)
--- NOTE | 2021-03-13 09:13 | NUR ---
CALLED [facility], WAS ON HOLD X 15 MINUTES.
--- NOTE | 2021-03-13 09:20 | NUR ---
PER DR. LEAVITT, HOLD OFF ON THE FLUIDS AT THIS TIME.
[2021-03-13] MEDS ORDERED: IV NS 0.9% 1,000 ML BAG IV ONE (09:30)
--- NOTE | 2021-03-13 09:30 | NUR ---
UA AND COVID SWAB SENT.
--- NOTE | 2021-03-13 09:34 | NUR ---
PER HALEY STALEY, PATIENT LEFT AMA FROM THEIR FACILITY.
[2021-03-13 09:36] LABS: BILIRUBIN,URINE Negative (NEGATIVE); COLOR,URINE YELLOW (YELLOW); LEUKOCYTE ESTERASE ,URINE Negative (NEGATIVE); NITRITE, URINE Negative (NEGATIVE); PROTEIN,URINE Trace mg/dl (NEGATIVE); UGLUCOSE Negative (NEGATIVE); UROBILINOGEN,URINE 0.2 EU/dL (0.2)
[2021-03-13 09:49] LABS: RBC,URINE 0-2 /HPF (0-2); SQUAMOUS EPITHELIAL CELL,UR Few /HPF (None Seen); WBC,URINE 0-2 /HPF (0-3)
[2021-03-13 09:51] LABS: BACTERIA,URINE Few /HPF (None Seen)
[2021-03-13] MEDS ORDERED: RIVA1.5C13 PO (09:54)
[2021-03-13] MEDS ORDERED: RISP0.2515 PO (09:54)
--- NOTE | 2021-03-13 10:01 | NUR ---
DR. LEAVITT MADE AWARE OF ELEVATED BP. WILL GIVE ORDER FOR A BP MED.
[2021-03-13] MEDS ORDERED: LABETALOL HCL IV 100MG VIAL ONE (10:06)
--- NOTE | 2021-03-13 10:10 | NUR ---
PAGED [facility].
--- NOTE | 2021-03-13 10:21 | NUR ---
PAGED [facility].
[2021-03-13] MEDS ORDERED: LABETALOL 20 MG/4 ML VIAL IV ONE (10:30)
--- NOTE | 2021-03-13 10:45 | NUR ---
"SS Consult: SS Consult completed for possible homelessness/self-neglect. The pt. is a 80 year old Female in ED. Per EMR, the pt. was BIBRA after pt. has been sitting in a bus top for almost 3 days unable to care for self. YOU met with pt. bedside. The pt. is a &o x 4 and makes appropriate eye contact. Pt. appears disheveled, unkempt, with contracted hands due to Rheumatoid Arthritis per pt. Pt. sated she is seeking medical Pt. denies being homeless, states she lives in [place] alone. However, pt. is unable to provide home address stating she just moved there one month ago and is currently in [facility] for a festival and unable to provide detailed information. SW explored support system and pt. stated she has a son & daughter. SW asked if son can be contacted for discharge planning purposes and pt. refused. Pt. stated, I dont want to worry them, I take care of myself. Pt. denies drug/ETOH use. Pt. denies SI/HI and denies hallucinations. SW provided pt. with homeless resources and pt. refused them. Pt. also refused to sign homeless waiver. YOU discussed with RN, Alberto who stated pt. may possibly be admitted medically. SW will be available as needed. SW completed APS report (#[id number]) for self-neglect. Resources offered include: Substance Abuse resources provided included: [facility] Substance Abuse Self-Helpline ([facility]) ; CRI -HELP [address] [facility]. [place] [address] ; [facility] [address] [facility] [address] ; [facility]al [facility] [address] [facility] [address] ; [facility] [address] [facility] [address] ; [facility] Treatment [facility] 6[address] [facility] [phone] ; [facility] [address] [facility] [id number] ; [facility] Substance Abuse Helpline([place] ; [facility] ; [facility] [place]; [facility] [place]; [facility] [place]; [facility] Luis Miguel Robertson; [facility] [place]; [facility]; [facility] [place]; [facility]. Brooke [place]; Alcoholics Anonymous -SFV; Wp-Cecw-[place] ; Marijuana Anonymous -SFV; Narcotics Anonymous www.na.org; Year-round shelters: [facility] [address], [place] [phone] ; [facility] [address] [place] [address]; [place] [facility] [id number] [facility] [address] Winter Shelters: Anneliese Armijo [place] Provider: [facility] Lucita MEJIA Address: [address], [address] # of Beds: 47 Population Served: [facility] 6 | [facility] Radha Sykes [place] Provider: Home at Last Address: [address], [address] # of Beds: 66 Population Served: [facility] [place] Provider: First to Serve Address: [address] [facility], [address] # of Beds: 56 Population Served: Eliezer Houston Provider: /Ms. [facility] Address: [address] [facility], [address] # of Beds: 49 Population Served: [facility] 8 | [facility] Provider: First to Serve Address: [address] [facility]. [place], [address] # of Beds: 37 Population Served: [facility] Hy[facility]: [facility]: [address] [address]. [place] ; [facility] [address] [facility] ; [facility] [address], [place] . Food Resources: [place] [facility] at [facility]- [address] [place]; Meet Each Need with Dignity ([facility]) [address] [facility] Hospital[facility] Coulters; [facility] 1161 [facility]; [facility] 3[address] [facility]. Mental Health resources provided: [facility] [address] [place], [place] [phone] ; [facility], [facility] [address] [facility] [address], [place], [place] [phone] ; [facility] [address] [place] [address] ; [facility] [address] [place], [place] [address] Healthcare Clinics: [facility] [address] [facility], [address] [place]. [place] ; [facility] [address] [facility] [address] [place] [address]; [facility] [place] [address] [facility]. [place] [phone] Counseling--Outpatient [facility] [address] [facility], [facility] [place], [place] [phone] (Specializes in in-depth psychotherapy for emotional distress: anxiety, depression, interpersonal conflicts, life transitions, childhood abuse) [facility] [address] [place], [place] [phone] (Assist with solving problem marital difficulties, separation & divorce, aging parents, & grief, chronic & terminal illness) [facility] [address] [place] [address] (Deal with loss & grief, anxiety, marital difficulties) Homebound/Mental Health Services [address] [place], [place] [address] (Provide in-home mental services to people who are incapable of leaving their homes) [facility] Elder[facility] Senior Service/Resource Center [address] [place], [place] [phone] [facility] [address] [place] [address] PSYCHIATRIC OUTPATIENT SERVICES [facility] Partial Hospitalization and Intensive Outpatient Program (Managed Care and [place] Only)[address] [place] Rajiv. [facility] [phone] [facility] Partial Hospitalization and Outpatient [id number] [place], [place] [phone] [facility] Partial Hospitalization and Outpatient [id number] [facility] Hospital[facility] [place], [place] [phone] [facility] Hpl[address] [place], [place] [phone] [facility] Luis Miguel Robertson Partial Hospitalization and Outpatient [id number] [facility] Luis Miguel Robertson [phone] "
--- NOTE | 2021-03-13 10:45 | NUR ---
DR. SALEEM AT BEDSIDE FOR EVAL. PATIENT RESTING, IN NO DISTRESS NOTED.
[2021-03-13 11:11] VITALS: BP 157/75
[2021-03-13] MEDS ORDERED: ACETAMINOPHEN 325 MG TABLET PO PRN (11:30)
[2021-03-13] MEDS ORDERED: ONDANSETRON HCL/PF 4 MG/2 ML VIAL IVP PRN (11:30)
[2021-03-13] MEDS ORDERED: MAG HYDROX/AL HYDROX/SIMETH 30 ML UDC PO PRN (11:30)
[2021-03-13] MEDS ORDERED: MAGNESIUM HYDROXIDE 30 ML UDC PO PRN (11:30)
[2021-03-13] MEDS ORDERED: Z GUARD REMEDY 2 OZ OINT TP PRN (11:30)
--- NOTE | 2021-03-13 11:33 | NUR ---
TELE 308-1 BED
--- NOTE | 2021-03-13 11:34 | NUR ---
PT HAS A ALFA MIDLINE, INSERTED BY IV NURSE
--- NOTE | 2021-03-13 11:40 | NUR ---
REPORT GIVEN TO AN DELGADO FOR ASHLEY.
[2021-03-13 11:59] LABS: THYROID STIMULATING HORMONE 0.008 uIU/mL (0.358-3.74)
--- NOTE | 2021-03-13 12:00 | NUR ---
RECEIVED PATIENT ALERT AND ORIENTED X3, ABLE TO MAKE NEEDS KNOWN. SOMEWHAT UNCOOPERATIVE WITH CARE. PATIENT FROM ER ENDORSED BY RANULFO DELGADO. PATIENT IS STABLE ON ROOM AIR. UNSTEADY GAIT. INCONTINENT WITH URINE. HAS IV ACCESS ON LEFT UPPER ARM MIDLINE PATENT AND INTACT ON SALINE LOCK. SAFETY PRECAUTIONS IN PLACED. BED LOCKED ON LOWEST POSITION, SIDE RAILS UP X2, CALL LIGHT WITHIN REACH. WILL CONTINUE TO MONITOR PATIENT.
--- NOTE | 2021-03-13 12:13 | NUR ---
PATIENT TRANSFERRED TO ROOM 308-1 VIA ACLS PROTOCOL. PATIENT INS TABLE CONDITION. ENDORSED TO AN DELGADO.
[2021-03-13] MEDS ORDERED: GABAPENTIN 100 MG CAPSULE PO SCH (13:00)
--- NOTE | 2021-03-13 14:30 | NUR ---
TELE/HHA NOTES PATIENT WAS PICKED UP BY SON, LEFT HOSPITAL AGAINST MEDICAL ADVISE. REFUSED TO SIGN BELONGINGS CHECKLIST AND REFUSED TO TAKE DISCHARGE PAPERS. IV ACCESS TAKEN OUT BY CHARGE NURSE RANJEET. PATIENT LEFT UNIT WITH SON ESCORTED WITH THE SECURITY.
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
[2021-03-13] MEDS ORDERED: METOPROLOL TARTRATE 50 MG TABLET PO SCH (17:00)
[2021-03-13] MEDS ORDERED: risperiDONE 0.25 MG TABLET PO SCH (21:00)
[2021-03-13] MEDS ORDERED: ATORVASTATIN 40 MG TABLET PO SCH (22:00)
[2021-03-14] MEDS ORDERED: RIVASTIGMINE TARTRATE 1.5 MG CAPSULE PO SCH (09:00)
[2021-03-14] MEDS ORDERED: AMLODIPINE BESYLATE 5 MG TABLET PO SCH (09:00)
[2021-03-14] MEDS ORDERED: ASPIRIN 81 MG TAB.CHEW PO SCH (09:00)
[2021-03-14] MEDS ORDERED: CLOPIDOGREL BISULFATE 75 MG TABLET PO SCH (09:00)
== END 2021-03-13 14:45 | disposition left against medical advice (07) | DRG 280 ==
LOC: ER 07:48 → TELE 11:50
PROVIDERS: ADMIT Internal Medicine; ATTEND Internal Medicine
PROC: 05HA33Z Insertion of Infusion Device into Left Brachial Vein, Percutaneous Approach (ICD-10-PCS; principal; 2021-03-13)
DX: I21.4 Non-ST elevation (NSTEMI) myocardial infarction (principal); I50.33 Acute on chronic diastolic (congestive) heart failure; I11.0 Hypertensive heart disease with heart failure; Z88.8 Allergy status to other drugs, medicaments and biological substances; Z79.82 Long term (current) use of aspirin; Z79.899 Other long term (current) drug therapy; I25.10 Atherosclerotic heart disease of native coronary artery without angina pectoris; Z73.6 Limitation of activities due to disability; F29 Unspecified psychosis not due to a substance or known physiological condition; S40.819A Abrasion of unspecified upper arm, initial encounter; W19.XXXA Unspecified fall, initial encounter; Y92.9 Unspecified place or not applicable; E78.5 Hyperlipidemia, unspecified; R79.89 Other specified abnormal findings of blood chemistry; I35.0 Nonrheumatic aortic (valve) stenosis; Z86.73 Personal history of transient ischemic attack (TIA), and cerebral infarction without residual deficits; Z79.02 Long term (current) use of antithrombotics/antiplatelets; M06.9 Rheumatoid arthritis, unspecified; R62.7 Adult failure to thrive; Z59.0 Homelessness; Z20.822 Contact with and (suspected) exposure to COVID-19
CPT/HCPCS: 36410; 36415; 80048-TC; 80061-TC; 80076-TC; 81001; 83605-TC; 83690-TC; 83880; 84443-TC; 84484-TC; 85025-TC; 87081-TC; 87086-TC; 93307-TC; C9803; G0378; G0480; J3490

== ENCOUNTER 2022-10-29 16:31 | Inpatient (IN) | payer MEDICARE, OTHER ==
[~2022-10-29] VITALS: Ht 162.6 cm; Wt 60.8 kg
[~2022-10-29 16:31] MED LIST changes: +RISP0.2515 PO; +RIVA1.5C13 PO
--- NOTE | 2022-10-29 16:45 | NUR ---
BIB RA86 AND [employer] FROM A HOTEL SHE WAS STAYING AT FOR FOUR DAYS PT WAS SITTING IN URINE AND FECES, [employer] PLACING HER ON A HOLD, REFUSED VITALS. PLACED IN BED, COOPERATIVE-CONFUSED, BREATHING EVEN AND UNLABORED SATURATING AT 97%RA
--- NOTE | 2022-10-29 17:05 | NUR ---
RAHUL ENAMORADO (SON/POA) [phone]
--- NOTE | 2022-10-29 17:30 | NUR ---
AT BEDSIDE FOR EVAL
--- NOTE | 2022-10-29 17:40 | NUR ---
OFFSHORE WIND TURBINE TECHNICIAN AT BEDSIDE
[2022-10-29 18:28] LABS: CALCIUM, SERUM 9.6 mg/dL (8.5-10.1); CARBON DIOXIDE 18 mmol/L (21-32); CHLORIDE 110 mmol/L (98-107); CREATININE 1.1 mg/dL (0.6-1.3); GLUCOSE 100 mg/dL (74-106); POTASSIUM 3.6 mmol/L (3.5-5.1); SODIUM SERUM 141 mmol/L (136-145); UREA NITROGEN, BLOOD 51 mg/dL (7-18)
[2022-10-29 18:34] LABS: ALANINE AMINOTRANSFERASE 17 U/L (12-78); ALKALINE PHOSPHATASE 83 U/L (46-116); ASPARTATE AMINOTRANSFERASE 35 U/L (15-37); BILIRUBIN,DIRECT 0.2 mg/dL (0.0-0.2); BILIRUBIN,TOTAL 0.6 mg/dL (0.2-1.0); TOTAL PROTEIN, SERUM 8.1 g/dL (6.4-8.2)
[2022-10-29 18:36] LABS: ACETAMINOPHEN < 10 ug/ml (10-30); ALCOHOL, BLOOD < 3 mg/dL (0-0)
--- NOTE | 2022-10-29 18:37 | NUR ---
PER ELLEN KAY, PT TAKES: GABAPENTIN 100MG 2X A DAY LEVOTHYROXINE 100MCG 1X A DAY GABAPENTIN 100MG 2X A DAY METOPROLOL 25MG 1X A DAY LASIX 20MG 1X A DAY IRON SULFATE 65MG 1X A DAY
--- NOTE | 2022-10-29 18:43 | NUR ---
URINE COLLECTED AND SENT TO LAB
[2022-10-29] MEDS ORDERED: CLONIDINE HCL 0.1 MG TABLET PO ONE (19:00)
[2022-10-29] MEDS ORDERED: CLONIDINE HCL 0.1 MG TABLET ONE (19:04)
[2022-10-29 19:06] LABS: BILIRUBIN,URINE 1+ (NEGATIVE); COLOR,URINE YELLOW (YELLOW); LEUKOCYTE ESTERASE ,URINE 1+ (NEGATIVE); NITRITE, URINE NEGATIVE (NEGATIVE); PROTEIN,URINE 2+ mg/dl (NEGATIVE); UGLUCOSE NEGATIVE (NEGATIVE); UROBILINOGEN,URINE 0.2 EU/dL (0.2)
[2022-10-29] MEDS ORDERED: hydrALAZINE HCL IV 20 MG VIAL IV ONE (20:00)
--- NOTE | 2022-10-29 20:04 | NUR ---
SWAB FOR COVID19 SENT TO LAB
[2022-10-29 20:08] LABS: BASOPHILS # (AUTO) 0.1 K/uL (0.0-0.2); BASOPHILS % (AUTO) 0.7 % (0.0-2.0); EOSINOPHILS % (AUTO) 1.2 % (0.0-6.0); HEMATOCRIT 35 % (33-45); HEMOGLOBIN 11.3 g/dL (11.5-14.8); LYMPHOCYTES # (AUTO) 1.4 K/uL (0.8-4.8); LYMPHOCYTES % (AUTO) 14.9 % (20.0-44.0); MEAN CORPUSCULAR HGB CONC 33 g/dl (31.0-36.0); MEAN CORPUSCULAR VOLUME 89 fL (82-100); MONOCYTES # (AUTO) 0.8 K/uL (0.1-1.30); MONOCYTES % (AUTO) 8.6 % (2.0-12.0); NEUTROPHILS # (AUTO) 6.8 K/uL (1.8-8.9); NEUTROPHILS % (AUTO) 74.6 % (43.0-81.0); PLATELET COUNT (AUTO) 315 K/uL (150-450); RED BLOOD CELL COUNT(AUTO) 3.94 MIL/uL (4.0-5.2); WHITE BLOOD COUNT (AUTO) 9.1 K/uL (4.3-11.0)
--- NOTE | 2022-10-29 20:26 | NUR ---
IV LFA #20G S/L ESTABLISHED
[2022-10-29] MEDS ORDERED: MAGNESIUM HYDROXIDE 30 ML UDC PO PRN (20:30)
[2022-10-29] MEDS ORDERED: ASPIRIN EC 325 MG TABLET.DR PO ONE (20:30)
[2022-10-29] MEDS ORDERED: NITROGLYCERIN 0.4 MG/TAB BOTTLE SL PRN (20:30)
[2022-10-29] MEDS ORDERED: ACETAMINOPHEN 325 MG TABLET PO PRN (20:30)
[2022-10-29] MEDS ORDERED: HYDROCODONE/APAP 5/325MG TABLET PO PRN (20:30)
[2022-10-29] MEDS ORDERED: MAG HYDROX/AL HYDROX/SIMETH 30 ML UDC PO PRN (20:30)
[2022-10-29] MEDS ORDERED: ZOLPIDEM TARTRATE 5 MG TABLET PO PRN (20:30)
[2022-10-29] MEDS ORDERED: ONDANSETRON HCL/PF 4 MG/2 ML VIAL IVP PRN (20:30)
[2022-10-29 20:35] LABS: BACTERIA,URINE Moderate /HPF (None Seen); RBC,URINE 51-80 /HPF (0-2); SQUAMOUS EPITHELIAL CELL,UR Moderate /HPF (None Seen)
[2022-10-29] MEDS: METOPROLOL TARTRATE 25 MG TABLET PO SCH (21:00)
[2022-10-29] MEDS ORDERED: LORAZEPAM INJ 2 MG/ML VIAL IV PRN (21:00)
--- NOTE | 2022-10-29 21:31 | NUR ---
REPORT GIVEN TO UMBERTO DELGADO ROOM 327 FOR ASHLEY
--- NOTE | 2022-10-29 22:04 | NUR ---
PT TRANSFERRED TO [facility]-1 VIA ACLS PROTOCOL. ALL BELONGINGS AND CELLPHONE, WHEELCHAIR AT PT'S BEDSIDE. VSS. PT TOELRATED TRANSFER WELL.
[2022-10-29] MEDS ORDERED: CEFTRIAXONE 1 G VIAL ONE (22:53)
[2022-10-29] MEDS: CEFTRIAXONE 1 G in IV D5W 50 ML IV SCH (22:55)
[2022-10-29] MEDS: OLANZAPINE ZYDIS 5 MG TAB.RAPDIS PO SCH (22:59)
[2022-10-29] MEDS: IV NS 0.9% 1,000 ML IV PRN (22:59)
--- NOTE | 2022-10-29 23:00 | NUR ---
CABLE TOOL DRILLERHEALTH CLAIMS EXAMINER NOTE RECEIVED REPORT FROM ER-RN. PATIENT WAS BROUGHT TO THE UNIT AT AROUND 2200, IN STABLE CONDITION VIA STRETCHER, ACCOMPANIED BY 2 ER STAFFS. ALERT AND ORIENTED X2. ABLE TO MAKE NEEDS KNOWN. AFEBRILE AND NOT IN ANY FORM OF ACUTE DISTRESS. BREATHING EVEN AND NON LABORED. NO C/O PAIN OR DISCOMFORT. PATIENT WAS ADMITTED D/T ELEVATED BP AND NSTEMI. DIRECTED TO 327-1. EXPLAINED ADMISSION PROCESS WHICH INCLUDES SKIN ASSESSMENT AND PATIENT AGREED TO IT. WITH IV ACCESS ON LEFT FOREARM G20. BELONGINGS AND VALUABLES CHECKED AND PROPERLY DOCUMENTED BY ASSIGNED STAFF. VITALS TAKEN AND FOLLOWS: BP- 103/68, P- 75, T- 97.9, O2 SAT ON RA- 97%, R- 18. ORIENTED TO NEW ENVIRONMENT. STARTED ON IV HYDRATION OF NS AT 100ML/HR AND ADMINISTERED IV ATB ORDERED. SAFETY MEASURES IN PLACE. KEPT BED IN LOCKED AND IN LOW POSITION. SIDE RAILS UP X2. BED ALARM ON. ADVISED TO USE THE CALL LIGHT WHEN IN NEED OF ASSISTANCE.
[2022-10-29] MEDS: ENOXAPARIN SODIUM 30 MG/0.3 ML DISP.SYRIN SQ SCH (23:15)
[2022-10-30 00:36] VITALS: BP 103/68
--- NOTE | 2022-10-30 01:25 | NUR ---
HOLLOW TILE PARTITION ERECTOR NOTE RECEIVED CALL FROM LAB INFORMING THAT PATIENT'S LATEST TROPONIN LEVEL IS 106. TEODORO WAGONER NOTIFIED WITH NO NEW ORDER MADE.
--- NOTE | 2022-10-30 06:26 | NUR ---
PARENT AIDE CLOSING NOTE PATIENT ON BED, ASLEEP BUT EASY TO AROUSE AND RESPONSIVE. ALERT AND ORIENTED X2. ABLE TO MAKE NEEDS KNOWN. AFEBRILE AND NOT IN ANY FORM OF ACUTE DISTRESS. BREATHING EVEN AND NON LABORED. NO C/O PAIN OR DISCOMFORT THROUGHOUT THE SHIFT. ON TELE MONITORING WITH CURRENT READING OF SR 80. WITH IV ACCESS ON LEFT FOREARM G20 RUNNING WITH NS AT 100ML/HR. MEDICATED ORDERED. ON IV ATB, MONITORED FOR ANY ADVERSE REACTION. SAFETY MEASURES IN PLACE. KEPT BED IN LOCKED AND IN LOW POSITION. SIDE RAILS UP X2. BED ALARM ON. ADVISED TO USE THE CALL LIGHT WHEN IN NEED OF ASSISTANCE. ALL NURSING NEEDS ATTENDED. ENDORSED TO INCOMING SHIFT FOR CONTINUITY OF CARE.
[2022-10-30 06:56] LABS: BASOPHILS % (AUTO) 0.8 % (0.0-2.0); EOSINOPHILS % (AUTO) 3.7 % (0.0-6.0); HEMATOCRIT 27 % (33-45); HEMOGLOBIN 8.5 g/dL (11.5-14.8); LYMPHOCYTES # (AUTO) 1.3 K/uL (0.8-4.8); LYMPHOCYTES % (AUTO) 24.9 % (20.0-44.0); MEAN CORPUSCULAR HGB CONC 32 g/dl (31.0-36.0); MEAN CORPUSCULAR VOLUME 89 fL (82-100); MONOCYTES # (AUTO) 0.6 K/uL (0.1-1.30); MONOCYTES % (AUTO) 10.5 % (2.0-12.0); NEUTROPHILS # (AUTO) 3.2 K/uL (1.8-8.9); NEUTROPHILS % (AUTO) 60.1 % (43.0-81.0); PLATELET COUNT (AUTO) 234 K/uL (150-450); RED BLOOD CELL COUNT(AUTO) 2.97 MIL/uL (4.0-5.2); WHITE BLOOD COUNT (AUTO) 5.4 K/uL (4.3-11.0)
[2022-10-30 07:00] VITALS: BP 146/86
--- NOTE | 2022-10-30 07:27 | NUR ---
MEDICAL IMAGING SPECIALIST OPENING NOTE RECEIVED PT ASLEEP IN BED, EASILY AROUSED. PT IS A/OX2-3, REORIENTED PT NEEDED. PT IS ABLE TO MAKE NEEDS KNOWN. ON ROOM AIR, TOLERATING WELL. NO SOB NOTED. NOT IN ANY SIGN OF RESPIRATORY DISTRESS. PT IS ON CARDIAC TELE MONITOR WITH CURRENT READING OF SINUS RHYTHM, HR 70. NO C/O CARDIAC DISTRESS VOICED OUT AT THIS TIME. IV ACCESS ON LFA G#20 INTACT AND PATENT WITH NS INFUSING AT 100ML/HR. SAFETY MEASURES IN PLACE: BED IN LOWEST AND LOCKED POSITION, SIDE RAILS UPX2, BED ALARM ON, AND CALL LIGHT WITHIN REACH. WILL CONTINUE TO MONITOR PT.
[2022-10-30 07:50] LABS: CALCIUM, SERUM 8.6 mg/dL (8.5-10.1); CREATININE 0.9 mg/dL (0.6-1.3); MAGNESIUM 2.3 mg/dL (1.8-2.4); PHOSPHORUS 4.8 mg/dL (2.5-4.9); POTASSIUM 3.4 mmol/L (3.5-5.1)
[2022-10-30] MEDS: PANTOPRAZOLE 40 MG TABLET.DR PO SCH (08:12)
[2022-10-30 08:35] LABS: THYROID STIMULATING HORMONE 0.015 uIU/mL (0.358-3.74)
[2022-10-30] MEDS: MORPHINE SULFATE INJ 2 MG/ML DISP.SYRIN IV PRN (09:07)
--- NOTE | 2022-10-30 09:10 | NUR ---
RN NOTE PT C/O BILATERAL HIP PAIN WITH PAIN SCALE LEVEL OF 9/10 AND REQUESTED FOR HER PAIN MEDICATION. MORPHINE 2MG IVP ADMINISTERED ORDERED Q4HRS PRN FOR SEVERE PAIN. WILL MONITOR AND REASSESS PT.
[2022-10-30] MEDS: AMLODIPINE BESYLATE 5 MG TABLET PO SCH (09:19)
[2022-10-30] MEDS: ASPIRIN 81 MG TAB.CHEW PO SCH (09:19)
[2022-10-30] MEDS: QUETIAPINE FUMARATE 25 MG TABLET PO SCH ×3 (09:19→17:00)
[2022-10-30] MEDS: METOPROLOL TARTRATE 25 MG TABLET PO SCH ×2 (09:20→21:02)
[2022-10-30] MEDS ORDERED: HYDR-3972 PO (09:26)
[2022-10-30] MEDS ORDERED: FOLI0.8C PO (09:26)
[2022-10-30] MEDS ORDERED: DIVA-76 PO (09:26)
[2022-10-30] MEDS ORDERED: LABE100T5 PO (09:26)
[2022-10-30] MEDS ORDERED: OLAN2.5T3 PO (09:26)
[2022-10-30] MEDS ORDERED: POTASSIUM CHLORIDE 20 MEQ TAB.PRT.SR PO SCH (11:00)
[2022-10-30 12:00] VITALS: BP 118/72
[2022-10-30] MEDS: IV NS 0.9% 1,000 ML IV PRN (12:37)
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
[2022-10-30 16:00] VITALS: BP 112/71
--- NOTE | 2022-10-30 17:05 | NUR ---
RN NOTE PT REFUSED HER SEROQUEL MEDICATION SCHEDULED AT 1700. EXPLAINED RISK AND BENEFITS, PT STILL REFUSED.
--- NOTE | 2022-10-30 18:40 | NUR ---
BULK PLANT SUPERVISOR CLOSING NOTE PT ASLEEP IN BED, EASILY AROUSED. PT IS A/OX2-3, REORIENTED PT NEEDED. PT IS ABLE TO MAKE NEEDS KNOWN. ON ROOM AIR, TOLERATING WELL. NO SOB NOTED. NOT IN ANY SIGN OF RESPIRATORY DISTRESS. PT IS ON CARDIAC TELE MONITOR WITH CURRENT READING OF SINUS RHYTHM, HR 90. NO C/O CARDIAC DISTRESS VOICED OUT AT THIS TIME. IV ACCESS ON LFA G#20 INTACT AND PATENT WITH NS INFUSING AT 100ML/HR. ALL NEEDS ATTENDED. KEPT CLEAN AND COMFORTABLE AT ALL TIMES. TURNED AND REPOSITIONED Q2HRS AND NEEDED. SAFETY MEASURES IN PLACE: BED IN LOWEST AND LOCKED POSITION, SIDE RAILS UPX2, BED ALARM ON, AND CALL LIGHT WITHIN REACH. WILL ENDORSE TO PHARMACY SERVICES DIRECTOR NURSE FOR ASHLEY.
--- NOTE | 2022-10-30 19:30 | NUR ---
TELE TREE FELLER INITIAL NOTES Received pt in bed awake and alert talking to her son at the bedside, With IVF infusing at this time. Denies any pain or any discomfort, on room air no signs of any discomfort or any distress noted. Re-orient where she at and how to used the call light system and pt understood well. Kept her warm and comfortable at all times. She also on tele Sinus Rhythm per monitor. Bed in low and lock in position with side rails x3 up and bed alarm set for pt safety. Will continue monitoring.
--- NOTE | 2022-10-30 20:00 | NUR ---
tele brewery technician notes Spoke to the Son Ben and he told me the list of her mom medication at home.
[2022-10-30] MEDS: OLANZAPINE ZYDIS 5 MG TAB.RAPDIS PO SCH (21:44)
[2022-10-30] MEDS: ENOXAPARIN SODIUM 30 MG/0.3 ML DISP.SYRIN SQ SCH (21:47)
[2022-10-30] MEDS: IV LR 1000 ML 1,000 ML IV PRN (21:48)
[2022-10-30] MEDS: CEFTRIAXONE 1 G in IV D5W 50 ML IV SCH (22:22)
[2022-10-31] MEDS ORDERED: LEVO100T9 PO (00:09)
[2022-10-31] MEDS ORDERED: OXYC-133 PO (00:09)
[2022-10-31] MEDS ORDERED: FURO-145 PO (00:09)
[2022-10-31] MEDS ORDERED: IRON18TA PO (00:09)
[2022-10-31] MEDS ORDERED: METO25TA6 PO (00:09)
[2022-10-31] MEDS ORDERED: GABA-532 PO (00:09)
--- NOTE | 2022-10-31 00:27 | NUR ---
TELE RECOVERY COACH NOTES Pt resting at this time with eyes closed but arouse easily. IVF still infusing , Breathing even and non-labored . Tele Sinus Rhythm per monitor. Kept her warm and comfortable at all times. Place call light at reach. will continue monitoring.
--- NOTE | 2022-10-31 07:30 | NUR ---
PLATE FORMER OPENING NOTE RECEIVED PT AWAKE IN BED TALKING ON HER MOBILE PHONE. PT IS A/OX2-3, REORIENTED PT NEEDED. PT IS ABLE TO MAKE NEEDS KNOWN. ON ROOM AIR, TOLERATING WELL. NO SOB NOTED. NOT IN ANY SIGN OF RESPIRATORY DISTRESS. PT IS ON CARDIAC TELE MONITOR WITH CURRENT READING OF SINUS RHYTHM, HR 69. NO C/O CARDIAC DISTRESS VOICED OUT AT THIS TIME. IV ACCESS ON LFA G#20 INTACT AND PATENT WITH LR INFUSING AT 75ML/HR. SAFETY MEASURES IN PLACE: BED IN LOWEST AND LOCKED POSITION, SIDE RAILS UPX2, BED ALARM ON, AND CALL LIGHT WITHIN REACH. WILL CONTINUE TO MONITOR PT.
--- NOTE | 2022-10-31 07:42 | NUR ---
tele auditor appraiser closing notes pt awake and alert watching tv , morning care rendered with the helped of another feather cutting machine feeder Cata because pt doesn't want male HATCH TENDER. IVF still infusing , pain subside after pain medication given earlier. all due meds given and all needs met. Kept her arm and comfortable at all times. Tele SR per monitor. Endorse to am nurse for continuity of care. Bed in low and lock in position with side rails x3 up . bed alarm set for safety. place call light at reach.
[2022-10-31] MEDS: PANTOPRAZOLE 40 MG TABLET.DR PO SCH (08:09)
[2022-10-31 08:42] VITALS: BP 158/93
[2022-10-31] MEDS: ASPIRIN 81 MG TAB.CHEW PO SCH (08:42)
[2022-10-31] MEDS: AMLODIPINE BESYLATE 5 MG TABLET PO SCH (08:42)
[2022-10-31] MEDS: METOPROLOL TARTRATE 25 MG TABLET PO SCH (08:42)
[2022-10-31] MEDS: QUETIAPINE FUMARATE 25 MG TABLET PO SCH ×2 (08:43→16:43)
--- NOTE | 2022-10-31 08:45 | NUR ---
RN NOTE PT REFUSED HER SEROQUEL MEDICATION SCHEDULED AT 0900. EXPLAINED RISK AND BENEFITS, PT STILL REFUSED.
[2022-10-31] MEDS ORDERED: ERGOCALCIFEROL (VITAMIN D 2) 50,000 UNIT CAPSULE PO SCH (09:00)
[2022-10-31 09:07] LABS: CALCIUM, SERUM 8.6 mg/dL (8.5-10.1); CARBON DIOXIDE 21 mmol/L (21-32); CHLORIDE 112 mmol/L (98-107); GLUCOSE 91 mg/dL (74-106); POTASSIUM 4.2 mmol/L (3.5-5.1); SODIUM SERUM 142 mmol/L (136-145); UREA NITROGEN, BLOOD 33 mg/dL (7-18)
[2022-10-31] MEDS: IV LR 1000 ML 1,000 ML IV PRN (13:57)
[2022-10-31] MEDS: MORPHINE SULFATE INJ 2 MG/ML DISP.SYRIN IV PRN (13:57)
--- NOTE | 2022-10-31 14:00 | NUR ---
RN NOTE PT C/O GENERALIZED BODY PAIN WITH PAIN SCALE LEVEL OF 9/10 AND REQUESTED FOR PAIN MEDICATION. MORPHINE 2MG IVP ADMINISTERED ORDERED Q4HRS PRN FOR SEVERE PAIN. WILL MONITOR AND REASSESS PT.
--- NOTE | 2022-10-31 16:44 | NUR ---
RN NOTE PT REFUSED HER SEROQUEL MEDICATION SCHEDULED AT 1700. EXPLAINED RISK AND BENEFITS, PT STILL REFUSED.
--- NOTE | 2022-10-31 18:38 | NUR ---
FRONT ATTENDANT CLOSING NOTE PT AWAKE AND RESTING IN BED WITH SON AT BEDSIDE. PT IS A/OX2-3, REORIENTED PT NEEDED. PT IS ABLE TO MAKE NEEDS KNOWN. ON ROOM AIR, TOLERATING WELL. NO SOB NOTED. NOT IN ANY SIGN OF RESPIRATORY DISTRESS. PT IS ON CARDIAC TELE MONITOR WITH CURRENT READING OF SINUS TACH, HR 103. NO C/O CARDIAC DISTRESS VOICED OUT AT THIS TIME. IV ACCESS ON LFA G#20 INTACT AND PATENT WITH LR INFUSING AT 75ML/HR. ALL NEEDS ATTENDED. KEPT CLEAN AND COMFORTABLE AT ALL TIMES. TURNED AND REPOSITIONED Q2HRS AND NEEDED. SAFETY MEASURES IN PLACE: BED IN LOWEST AND LOCKED POSITION, SIDE RAILS UPX2, BED ALARM ON, AND CALL LIGHT WITHIN REACH. WILL ENDORSE TO MARINE ENGINE MACHINIST APPRENTICE NURSE FOR ASHLEY.
--- NOTE | 2022-10-31 18:55 | NUR ---
RN NOTE PT C/O FEELING ANXIOUS AND AGITATED AND REQUESTED FOR ATIVAN. ATIVAN 0.5MG IVP ADMINISTERED ORDERED Q6HRS PRN FOR ANXIETY. PARTIAL WASTED AND WAS WITNESSED BY SANDY DILL. WILL MONITOR AND REASSESS PT.
--- NOTE | 2022-10-31 19:37 | NUR ---
MIMI DELGADO NOTE PT WAS DISCHARGED AGAINST MEDICAL ADVICE. RN NURSE EXPLAINED TO THE PT AND TO THE SON AT BEDSIDE THAT PT IS STILL NOT STABLE TO LEAVE AND ALSO EXPLAINED THE RISK OF LEAVING AGAINST MEDICAL ADVICE BUT PT IS ADAMANT AND STILL WANTS TO LEAVE THE HOSPITAL. ALSO EXPLAINED THAT SHE IS STILL ON CONTINUOUS IV ANTIBIOTICS FOR HER INFECTION AND IT'S RISKY IF ANTIBIOTICS IS STOPPED. PT STILL WANTS TO LEAVE THE HOSPITAL, PT STATED, "I DON'T NEED ANTIBIOTICS, I CAN TAKE CARE OF MYSELF". PT IS A/O X3, ABLE TO MAKE NEEDS KNOWN. PT DENIES VISUAL/AUDITORY HALLUCINATIONS. PT DENIES SUICIDAL OR HOMICIDAL IDEATION. PT IS ON ROOM AIR, TOLERATING WELL. NO SOB NOTED. NOT IN ANY SIGN OF RESPIRATORY DISTRESS. VITAL SIGNS TAKEN, STABLE, AND RECORDED. PT REFUSED BODY ASSESSMENTS AND PHOTOGRAPHS OF SKIN ISSUES. ALL BELONGINGS ACCOUNTED FOR. HEALTH TEACHINGS EXPLAINED TO THE PT BUT PT REFUSED TO LISTEN AND JUST WANTS TO LEAVE WITHOUT ANY COPIES OF EDUCATIONAL MATERIALS. IV ACCESS ON LFA G#20 REMOVED WITH NO ACTIVE BLEEDING NOTED. DRY PRESSURE DRESSING APPLIED AT SITE. WRISTBAND REMOVED. PT LEFT THE UNIT AT 1930 VIA WHEELCHAIR ACCOMPANIED BY ALEK KENNY. PT LEFT WITH SON, PER SON THEY WILL TAKE AN UBER. AND CHARGED NURSE AWARE OF AMA DISCHARGED. Addendum: 10/31/22 at 1947 by FRANCE ECHOLS RN ADDENDUM TELE INNERSOLE FITTER REMOVED REMOVED BY ALEK KENNY AND TELE BOX WAS GIVEN TO RICH BOLANOS. PT ALSO SIGNED THE AGAINST MEDICAL ADVICE FORM.
[2022-11-01 16:07] LABS: *SPE A/G RATIO 1.2 (0.7-1.7); *SPE ALPHA-1-GLOBULIN 0.2 g/dL (0.0-0.4); *SPE ALPHA-2-GLOBULIN 0.4 g/dL (0.4-1.0); *SPE BETA GLOBULIN 1.1 g/dL (0.7-1.3); *SPE M-SPIKE Not Observed g/dL (Not Observed)
== END 2022-10-31 19:40 | disposition left against medical advice (07) | DRG 280 ==
LOC: ER 16:35 → TELE 20:53
PROVIDERS: ADMIT Nurse Practitioner Acute Care; ATTEND Nurse Practitioner Acute Care
DX: I16.0 Hypertensive urgency (principal); G93.41 Metabolic encephalopathy; I21.A1 Myocardial infarction type 2; N17.0 Acute kidney failure with tubular necrosis; N39.0 Urinary tract infection, site not specified; F01.54 Vascular dementia, unspecified severity, with anxiety; F01.518 Vascular dementia, unspecified severity, with other behavioral disturbance; F02.84 Dementia in other diseases classified elsewhere, unspecified severity, with anxiety; E87.20 Acidosis, unspecified; I50.32 Chronic diastolic (congestive) heart failure; Z20.822 Contact with and (suspected) exposure to COVID-19; Z73.6 Limitation of activities due to disability; Z88.8 Allergy status to other drugs, medicaments and biological substances; Z79.02 Long term (current) use of antithrombotics/antiplatelets; Z79.82 Long term (current) use of aspirin; Z79.899 Other long term (current) drug therapy; Z59.01 Sheltered homelessness; E86.0 Dehydration; B96.89 Other specified bacterial agents as the cause of diseases classified elsewhere; Z86.73 Personal history of transient ischemic attack (TIA), and cerebral infarction without residual deficits; M06.9 Rheumatoid arthritis, unspecified; R62.7 Adult failure to thrive; F29 Unspecified psychosis not due to a substance or known physiological condition; G30.9 Alzheimer's disease, unspecified; I11.0 Hypertensive heart disease with heart failure; I25.10 Atherosclerotic heart disease of native coronary artery without angina pectoris; Z95.2 Presence of prosthetic heart valve
CPT/HCPCS: 36415; 71045-TC; 80048-TC; 80061-TC; 80076-TC; 81001; 83735-TC; 83880; 83970; 84100-TC; 84155; 84165; 84439-TC; 84443-TC; 84484-TC; 85025-TC; 87081-TC; 87086-TC; 93307-TC; G0378; G0480; J0696; J1650; J2060; J2270; J7030; J7060; J7120